=== PATIENT | female | born 1960 | race African-American/Black ===

== ENCOUNTER 2017-09-26 11:06 | Emergency (ER) | payer BC ==
[~2017-09-26] VITALS: Ht 165.1 cm; Wt 58.0 kg
[2017-09-26 13:29] VITALS: BP 101/63
== END 2017-09-26 14:58 | disposition home or self-care (01) ==
LOC: ER 13:25
DX: M54.2 Cervicalgia (principal); I11.9 Hypertensive heart disease without heart failure; E11.9 Type 2 diabetes mellitus without complications; V43.92XA Unspecified car occupant injured in collision with other type car in traffic accident, initial encounter; Y92.488 Other paved roadways as the place of occurrence of the external cause
CPT/HCPCS: 99283

== ENCOUNTER 2019-01-25 11:57 | Inpatient (IN) | payer BC ==
[~2019-01-25] VITALS: Ht 165.1 cm; Wt 61.2 kg
[2019-01-25] MEDS ORDERED: SODIUM CHLORIDE 0.9% 1,000 ML IV ONE (16:12)
[2019-01-25] MEDS ORDERED: ASPIRIN 81MG TABLET PO ONE (16:15)
[2019-01-25 16:54] LABS: CHLORIDE 100 mEq/L (98-107)
[2019-01-25 16:56] LABS: BASOPHILS % 0.7 % (0.0-2.0); EOSINOPHILS % 0.2 % (0.0-5.0); HEMATOCRIT. 42.9 % (36.0-48.0); HEMOGLOBIN. 14.3 g/dL (12.0-16.0); LYMPHOCYTES % 23.8 % (20.0-50.0); MEAN CORPUSCULAR HEMOGLOBIN 32.2 pg (28.0-32.0); MEAN CORPUSCULAR VOLUME 96.5 fL (81.0-99.0); MEAN PLATELET VOLUME 9.1 fl (7.4-10.4); MONOCYTES % 4.7 % (2.0-8.0); NEUTROPHILS % 70.6 % (40.0-76.0); PLATELET 253 x1000/uL (130-400); RED BLOOD CELL COUNT 4.45 mill/uL (4.2-5.4); RED CELL DISTRIBUTION WIDTH 14.1 % (11.6-14.6)
[2019-01-25 16:57] LABS: D-DIMER 0.78 mg/L FEU (<0.50); INR 1.2; PARTIAL THROMBOPLASTIN TIME 25.9 sec (23.4-31.0); PROTHROMBIN TIME 11.9 sec (9.6-11.0)
[2019-01-25] MEDS ORDERED: NITROGLYCERIN OINT 1GM/INCH UDPKT TD ONE (18:30)
[2019-01-25] MEDS ORDERED: FUROSEMIDE 40MG/4ML VIAL IV ONE (18:30)
[2019-01-25] MEDS ORDERED: IOHEXOL-350 100 ML BOTTLE ONE (18:57)
[2019-01-25] MEDS ORDERED: DEXTROSE 50% WATER 50ML SYRINGE IV PRN (19:00)
[2019-01-25 19:07] LABS: BG BASE EXCESS -2.1 mmol/L (-2.0-2.0); BG CARBOXYHEMOGLOBIN 0.8 % (0.5-1.5); BG DEOXYHEMOGLOBIN 8.4 % (0.0-5.0); BG FRACTION INSPIRED OXYGEN 21; BG HCO3 ACT 22.1 mmol/L (22.0-26.0); BG METHEMOGLOBIN 0.1 % (0.0-1.5); BG OXYGEN SATURATION 91.5 % (92.0-98.5); BG OXYHEMOGLOBIN 90.7 % (94.0-97.0); BG PCO2 36.3 mmHg (35.0-45.0); BG PH 7.403 (7.350-7.450); BG PO2 66.7 mmHg (75.0-100.0); BG SAMPLE SITE RIGHT RADIAL; BG TOTAL HEMOGLOBIN 14.4 g/dL (12.0-18.0); BG VENT MODE ROOM AIR
[2019-01-25] MEDS ORDERED: INSULIN LISPRO 100 UNITS/ML SUBCUT NR (23:25)
[2019-01-26] VITALS: BP 125/77
[2019-01-26] MEDS ORDERED: DEXTROSE 50% WATER 50ML SYRINGE IV PRN (00:45)
[2019-01-26] MEDS ORDERED: FURO-151 PO (00:51)
[2019-01-26] MEDS ORDERED: COR6 PO (00:51)
[2019-01-26] MEDS ORDERED: METF-816 PO (00:51)
[2019-01-26] MEDS ORDERED: ASPI-1393 PO (00:51)
[2019-01-26 04:00] VITALS: BP 93/63
[2019-01-26] MEDS: BLOOD SUGAR DIAGNOSTIC STRIP TEST SCH ×3 (06:51→18:02)
[2019-01-26 07:30] LABS: CREATINE KINASE MB FRACTION 2.9 ng/mL (0.5-3.6)
[2019-01-26] MEDS ORDERED: BLOOD SUGAR DIAGNOSTIC STRIP TEST SCH (07:40)
[2019-01-26 08:00] VITALS: BP 110/70
[2019-01-26] MEDS ORDERED: INSULIN LISPRO 100 UNITS/ML SUBCUT SCH (08:10)
[2019-01-26] MEDS: INSULIN LISPRO 100 UNITS/ML SUBCUT SCH ×3 (08:58→18:15)
[2019-01-26] MEDS ORDERED: CARVEDILOL 6.25 MG TABLET PO SCH (09:00)
[2019-01-26] MEDS ORDERED: LISINOPRIL 10MG TABLET PO SCH (09:00)
[2019-01-26] MEDS ORDERED: FUROSEMIDE 40MG/4ML VIAL IVP SCH ×2 (09:00→17:15)
[2019-01-26] MEDS ORDERED: ENOXAPARIN 40MG/0.4ML SYR SUBCUT SCH (09:00)
[2019-01-26] MEDS ORDERED: ASPIRIN 81MG TABLET PO SCH (09:00)
[2019-01-26] MEDS: METFORMIN HCL 500MG TABLET PO SCH ×2 (09:01→18:14)
[2019-01-26 12:00] VITALS: BP 100/67
[2019-01-26 15:13] LABS: CREATINE KINASE MB FRACTION 2.6 ng/mL (0.5-3.6)
[2019-01-26 16:00] VITALS: BP 110/68
[2019-01-26 17:42] VITALS: BP 110/68
== END 2019-01-26 18:47 | disposition short-term general hospital (02) | DRG 292 ==
LOC: ER 12:34 → 7WST 18:21 → ENRESERV 19:44 → CANRESERV 19:44 → CANBEDREQ 21:01 → ENRESERV 23:05
PROVIDERS: ADMIT Internal Medicine; ATTEND Internal Medicine
DX: I11.0 Hypertensive heart disease with heart failure (principal); R17 Unspecified jaundice; E11.65 Type 2 diabetes mellitus with hyperglycemia; I50.23 Acute on chronic systolic (congestive) heart failure; I42.9 Cardiomyopathy, unspecified; E78.5 Hyperlipidemia, unspecified; R06.03 Acute respiratory distress; I25.10 Atherosclerotic heart disease of native coronary artery without angina pectoris; I44.7 Left bundle-branch block, unspecified; Z91.19 Patient's noncompliance with other medical treatment and regimen; Z95.810 Presence of automatic (implantable) cardiac defibrillator; Z79.84 Long term (current) use of oral hypoglycemic drugs
CPT/HCPCS: 36415; 36600; 71045; 71275; 82375; 82550; 82553; 82805; 82962; 83036; 83880; 84443; 84484; 85379; 93005; 93306; 93970; 99285; J1650; J1815; J1940; J7030; Q9967

== ENCOUNTER 2022-03-01 11:01 | Inpatient (IN) | payer BC, OTHER ==
[~2022-03-01] VITALS: Ht 167.6 cm; Wt 64.0 kg
[~2022-03-01 11:01] MED LIST: ASPI-1497 PO; COR6 PO; FURO-151 PO; METF-874 PO
[2022-03-01 13:17] LABS: BASOPHILS % 0.8 % (0.0-2.0); EOSINOPHILS % 0.4 % (0.0-5.0); HEMATOCRIT. 41.2 % (36.0-48.0); HEMOGLOBIN. 13.7 g/dL (12.0-16.0); LYMPHOCYTES % 26.5 % (20.0-50.0); MEAN CORPUSCULAR VOLUME 93.2 fL (81.0-99.0); MEAN PLATELET VOLUME 8.7 fl (7.4-10.4); MONOCYTES % 7.9 % (2.0-8.0); NEUTROPHILS % 64.4 % (40.0-76.0); PLATELET 215 x1000/uL (130-400); RED BLOOD CELL COUNT 4.42 mill/uL (4.2-5.4); RED CELL DISTRIBUTION WIDTH 13.8 % (11.6-14.6)
[2022-03-01 13:26] LABS: CHLORIDE 98 mEq/L (98-107)
[2022-03-01 14:45] LABS: CLARITY URINE CLEAR (CLEAR); COLOR URINE YELLOW (YELLOW); KETONES URINE TRACE (NEGATIVE); LEUKOCYTE ESTERASE URINE NEGATIVE (NEGATIVE); NITRITE URINE NEGATIVE (NEGATIVE); OCCULT BLOOD URINE NEGATIVE (NEGATIVE); PROTEIN URINE 1+ (NEGATIVE); SPECIFIC GRAVITY URINE 1.022 (1.005-1.030)
[2022-03-01] MEDS ORDERED: ASPIRIN 325MG EC TABLET PO ONE (15:00)
[2022-03-01 15:02] LABS: *AMPHETAMINES SCREEN URINE NEGATIVE (NEGATIVE); *BARBITURATES SCREEN URINE NEGATIVE (NEGATIVE); *BENZODIAZEPINES SCREEN URINE NEGATIVE (NEGATIVE); *COCAINE SCREEN URINE NEGATIVE (NEGATIVE); CANNABINOID URINE SCREEN NEGATIVE (NEGATIVE); METHADONE URINE SCREEN NEGATIVE (NEGATIVE); OPIATES URINE SCREEN NEGATIVE (NEGATIVE); PHENCYCLIDINE URINE SCREEN NEGATIVE (NEGATIVE)
[2022-03-01 22:00] VITALS: BP 121/74
[2022-03-01] MEDS ORDERED: IOHEXOL-350 100 ML BOTTLE ONE (22:21)
[2022-03-01 22:30] VITALS: BP 121/74
[2022-03-02] VITALS: BP 133/80
[2022-03-02] MEDS ORDERED: DEXTROSE 50% WATER 50ML SYRINGE IV PRN (00:15)
[2022-03-02 04:00] VITALS: BP 110/58
[2022-03-02 05:59] LABS: BASOPHILS % 0.9 % (0.0-2.0); EOSINOPHILS % 1.3 % (0.0-5.0); HEMATOCRIT. 39.5 % (36.0-48.0); HEMOGLOBIN. 13.5 g/dL (12.0-16.0); LYMPHOCYTES % 36.1 % (20.0-50.0); MEAN CORPUSCULAR HEMOGLOBIN 31.7 pg (28.0-32.0); MEAN CORPUSCULAR VOLUME 92.4 fL (81.0-99.0); MEAN PLATELET VOLUME 9.3 fl (7.4-10.4); MONOCYTES % 8.1 % (2.0-8.0); NEUTROPHILS % 53.6 % (40.0-76.0); PLATELET 216 x1000/uL (130-400); RED BLOOD CELL COUNT 4.27 mill/uL (4.2-5.4); RED CELL DISTRIBUTION WIDTH 13.7 % (11.6-14.6)
[2022-03-02 06:39] LABS: CHLORIDE 101 mEq/L (98-107)
[2022-03-02 06:49] LABS: HDL CHOLESTEROL 71 mg/dL (40-59); LDL CHOLESTEROL 44 mg/dL (5-100)
[2022-03-02] MEDS: BLOOD SUGAR DIAGNOSTIC STRIP TEST SCH ×4 (07:10→20:53)
[2022-03-02 08:00] VITALS: BP 106/66
[2022-03-02] MEDS: INSULIN LISPRO 100 UNITS/ML SUBCUT SCH ×4 (08:19→21:40)
[2022-03-02] MEDS ORDERED: ASPIRIN 325MG EC TABLET PO SCH (09:00)
[2022-03-02] MEDS ORDERED: CARVEDILOL 6.25 MG TABLET PO SCH (09:00)
[2022-03-02] MEDS ORDERED: DOCUSATE SODIUM 100MG CAPSULE PO SCH (09:00)
[2022-03-02] MEDS: CARVEDILOL 6.25 MG TABLET PO SCH ×2 (09:13→17:07)
[2022-03-02] MEDS: HEPARIN 5000 UNITS/ML VIAL SUBCUT SCH ×2 (09:15→20:48)
[2022-03-02 12:00] VITALS: BP 104/60
[2022-03-02 15:59] VITALS: BP 111/65
[2022-03-02] MEDS ORDERED: ATORVASTATIN CALCIUM 40MG TABLET PO SCH (21:00)
== END 2022-03-02 23:03 | disposition short-term general hospital (02) | DRG 69 ==
LOC: ER 11:05 → 8WST 16:39 → ENRESERV 21:02
PROVIDERS: ADMIT Internal Medicine; ATTEND Internal Medicine
DX: G45.9 Transient cerebral ischemic attack, unspecified (principal); I21.4 Non-ST elevation (NSTEMI) myocardial infarction; E87.1 Hypo-osmolality and hyponatremia; Z20.822 Contact with and (suspected) exposure to COVID-19; I25.10 Atherosclerotic heart disease of native coronary artery without angina pectoris; I11.0 Hypertensive heart disease with heart failure; D72.819 Decreased white blood cell count, unspecified; I50.9 Heart failure, unspecified; Z95.0 Presence of cardiac pacemaker; Z79.899 Other long term (current) drug therapy; E11.65 Type 2 diabetes mellitus with hyperglycemia
CPT/HCPCS: 36415; 70496; 70498; 71045; 80048; 80053; 80061; 80305; 81003; 82962; 83036; 83880; 84484; 85025; 87426; 93005; 99291; C9803; J1644; J1815; Q9967

== ENCOUNTER 2022-08-09 08:46 | Inpatient (IN) | payer OTHER ==
[~2022-08-09] VITALS: Ht 160 cm; Wt 64.0 kg
[2022-08-09 09:58] LABS: HEMATOCRIT. 40.7 % (36.0-48.0); HEMOGLOBIN. 13.6 g/dL (12.0-16.0); MEAN CORPUSCULAR VOLUME 95.7 fL (81.0-99.0); MEAN PLATELET VOLUME 8.5 fl (7.4-10.4); PLATELET 200 x1000/uL (130-400); RED BLOOD CELL COUNT 4.25 mill/uL (4.2-5.4); RED CELL DISTRIBUTION WIDTH 14.1 % (11.6-14.6)
[2022-08-09 10:06] LABS: CHLORIDE 106 mEq/L (98-107)
[2022-08-09 10:09] LABS: INR 1.2; PROTHROMBIN TIME 12.3 sec (9.6-11.0)
[2022-08-09 10:23] LABS: PLATELET ESTIMATE NORMAL
[2022-08-09] MEDS ORDERED: ENOXAPARIN 60MG/0.6ML SYR SUBCUT ONE (10:30)
[2022-08-09 14:29] LABS: CLARITY URINE CLEAR (CLEAR); COLOR URINE DARK YELLOW (YELLOW); KETONES URINE NEGATIVE (NEGATIVE); LEUKOCYTE ESTERASE URINE TRACE (NEGATIVE); NITRITE URINE NEGATIVE (NEGATIVE); OCCULT BLOOD URINE NEGATIVE (NEGATIVE); PROTEIN URINE 1+ (NEGATIVE); SPECIFIC GRAVITY URINE 1.026 (1.005-1.030)
[2022-08-09 16:59] VITALS: BP 106/70
== END 2022-08-09 17:01 | disposition home or self-care (01) | DRG 177 ==
LOC: ER 08:46 → EDBEDREQSVC 11:25 → MICUSO 12:56 → EDBEDREQTM 12:59 → EDBEDREQ 12:59 → MICUSO 17:01
PROVIDERS: ADMIT Internal Medicine; ATTEND Internal Medicine
DX: U07.1 COVID-19 (principal); I21.4 Non-ST elevation (NSTEMI) myocardial infarction; E11.9 Type 2 diabetes mellitus without complications; I11.0 Hypertensive heart disease with heart failure; I25.10 Atherosclerotic heart disease of native coronary artery without angina pectoris; R19.7 Diarrhea, unspecified; I50.9 Heart failure, unspecified; Z86.73 Personal history of transient ischemic attack (TIA), and cerebral infarction without residual deficits; Z79.82 Long term (current) use of aspirin; Z79.899 Other long term (current) drug therapy
CPT/HCPCS: 36415; 71045; 80053; 81003; 82962; 83605; 84145; 84484; 85025; 85379; 87426; 87804; 93005; 99285; C9803; J1650

== ENCOUNTER 2022-08-14 12:43 | Emergency (ER) | payer OTHER ==
[~2022-08-14] VITALS: Ht 160 cm; Wt 50.0 kg
[2022-08-14 12:46] VITALS: BP 112/65
== END 2022-08-14 16:11 | disposition home or self-care (01) ==
LOC: ER 12:43
DX: Z20.822 Contact with and (suspected) exposure to COVID-19 (principal); Z98.890 Other specified postprocedural states; I11.0 Hypertensive heart disease with heart failure; I50.9 Heart failure, unspecified; E11.9 Type 2 diabetes mellitus without complications
CPT/HCPCS: 87426; 99283; C9803

== ENCOUNTER 2022-12-09 09:55 | Emergency (ER) | payer OTHER ==
[~2022-12-09] VITALS: Ht 165.1 cm; Wt 58.2 kg
[2022-12-09 10:49] LABS: BASOPHILS % 0.6 % (0.0-2.0); EOSINOPHILS % 0.2 % (0.0-5.0); HEMATOCRIT. 39.4 % (36.0-48.0); HEMOGLOBIN. 13.5 g/dL (12.0-16.0); MEAN CORPUSCULAR HEMOGLOBIN 32.2 pg (28.0-32.0); MEAN CORPUSCULAR VOLUME 94.3 fL (81.0-99.0); MEAN PLATELET VOLUME 8.7 fl (7.4-10.4); MONOCYTES % 8.8 % (2.0-8.0); NEUTROPHILS % 71.4 % (40.0-76.0); PLATELET 250 x1000/uL (130-400); RED BLOOD CELL COUNT 4.18 mill/uL (4.2-5.4); RED CELL DISTRIBUTION WIDTH 15.1 % (11.6-14.6)
[2022-12-09 11:01] LABS: CHLORIDE 100 mEq/L (98-107)
[2022-12-09 12:07] LABS: INR 1.2; PROTHROMBIN TIME 12.4 sec (9.6-11.0)
[2022-12-09 12:23] LABS: CLARITY URINE CLEAR (CLEAR); COLOR URINE DARK YELLOW (YELLOW); KETONES URINE TRACE (NEGATIVE); LEUKOCYTE ESTERASE URINE 2+ (NEGATIVE); NITRITE URINE NEGATIVE (NEGATIVE); OCCULT BLOOD URINE NEGATIVE (NEGATIVE); PH URINE 5.5 (4.5-8.0); PROTEIN URINE 1+ (NEGATIVE); SPECIFIC GRAVITY URINE 1.028 (1.005-1.030)
[2022-12-09] MEDS ORDERED: NITROGLYCERIN 0.4MG TABLET SL SL ONE (12:30)
[2022-12-09] MEDS ORDERED: ACETAMINOPHEN 325MG TABLET PO ONE (12:30)
[2022-12-09] MEDS ORDERED: FUROSEMIDE 40MG/4ML VIAL IVP ONE (12:30)
[2022-12-09 21:35] VITALS: BP 120/75
== END 2022-12-09 22:04 | disposition short-term general hospital (02) ==
LOC: ER 09:55 → EDBEDREQ 17:18 → ER 22:04
DX: I11.0 Hypertensive heart disease with heart failure (principal); I50.9 Heart failure, unspecified; R77.8 Other specified abnormalities of plasma proteins; E11.9 Type 2 diabetes mellitus without complications; Z98.890 Other specified postprocedural states; Z20.822 Contact with and (suspected) exposure to COVID-19
CPT/HCPCS: 36415; 71045; 80053; 81003; 82962; 83880; 84484; 85025; 85610; 87426; 93005; 96374; 99285; C9803; J1940; Z7610

== ENCOUNTER 2023-08-12 09:30 | Emergency (ER) | payer OTHER ==
[~2023-08-12] VITALS: Ht 162.6 cm; Wt 61.0 kg
[2023-08-12 10:02] VITALS: BP 117/66; PULSE 84; RESP 18; TEMP 98.9; O2SAT 98
[2023-08-12] MEDS ORDERED: FLUT9.9S BOTHNSTRLS (11:11)
[2023-08-12] MEDS ORDERED: TOPUD PO (11:12)
== END 2023-08-12 11:18 | disposition home or self-care (01) ==
LOC: ER 09:30
DX: H57.13 Ocular pain, bilateral (principal); J32.9 Chronic sinusitis, unspecified; I11.0 Hypertensive heart disease with heart failure; I50.9 Heart failure, unspecified; I25.10 Atherosclerotic heart disease of native coronary artery without angina pectoris; E11.9 Type 2 diabetes mellitus without complications; Z95.0 Presence of cardiac pacemaker
CPT/HCPCS: 99281

== ENCOUNTER 2023-08-31 13:00 | Inpatient (IN) | payer OTHER, MEDICAID ==
[~2023-08-31] VITALS: Ht 167.6 cm; Wt 63.5 kg
[~2023-08-31 13:00] MED LIST changes: -ASPI-1497 PO; -COR6 PO; +FLUT9.9S BOTHNSTRLS; -FURO-151 PO; -METF-874 PO; +TOPUD PO
[2023-08-31 15:30] LABS: HEMATOCRIT. 36.3 % (36.0-48.0); MEAN CORPUSCULAR HEMOGLOBIN 31.3 pg (28.0-32.0); MEAN CORPUSCULAR VOLUME 94.9 fL (81.0-99.0); MEAN PLATELET VOLUME 8.8 fl (7.4-10.4); PLATELET 239 x1000/uL (130-400); RED BLOOD CELL COUNT 3.82 mill/uL (4.2-5.4); RED CELL DISTRIBUTION WIDTH 17.8 % (11.6-14.6); WHITE BLOOD COUNT 3.9 x1000/uL (4.5-11.0)
[2023-08-31 15:32] LABS: DIFFERENTIAL COMMENT 1
[2023-08-31 15:53] LABS: ALANINE AMINOTRANSFERASE 28 IU/L (10-49); ASPARTATE AMINOTRANSFERASE 51 IU/L (<34); BILIRUBIN TOTAL 2.9 mg/dL (0.1-1.0); CARBON DIOXIDE 25 mEq/L (21-32); CHLORIDE 97 mEq/L (98-107); CREATININE 1.1 mg/dL (0.6-1.0); GLUCOSE 239 mg/dL (70-105); POTASSIUM 4.5 mEq/L (3.5-5.1); PROTEIN TOTAL 7.7 g/dL (6.0-8.3); SODIUM 132 mEq/L (136-145); UREA NITROGEN BLOOD 23 mg/dL (9-23)
[2023-08-31 16:17] LABS: TROPONIN I HIGH SENSITIVITY 67 ng/L (3.0-34)
[2023-08-31 17:06] LABS: PLATELET ESTIMATE NORMAL
[2023-08-31 18:33] LABS: CLARITY URINE CLOUDY (CLEAR); COLOR URINE DARK YELLOW (YELLOW); GLUCOSE URINE TRACE (NEGATIVE); KETONES URINE NEGATIVE (NEGATIVE); LEUKOCYTE ESTERASE URINE 1+ (NEGATIVE); NITRITE URINE NEGATIVE (NEGATIVE); OCCULT BLOOD URINE 1+ (NEGATIVE); PROTEIN URINE 2+ (NEGATIVE); SPECIFIC GRAVITY URINE 1.017 (1.005-1.030)
[2023-08-31 19:24] LABS: BACTERIA URINE 1+; SQUAMOUS EPITHELIAL CELL URINE 1+ /lpf (RARE/1+)
[2023-09-01] LABS: TROPONIN I HIGH SENSITIVITY 73 ng/L (3.0-34)
[2023-09-01] MEDS ORDERED: ASPIRIN 81MG TABLET PO NR (02:30)
[2023-09-01] MEDS ORDERED: FUROSEMIDE 40MG/4ML VIAL IV NR (02:30)
[2023-09-01 08:00] VITALS: BP 117/68; PULSE 79; RESP 18; TEMP 97.6
[2023-09-01 09:15] VITALS: BP 117/68; PULSE 79; RESP 20; TEMP 97.9
[2023-09-01 10:29] VITALS: BP 117/68; PULSE 79; RESP 18; TEMP 97.6
[2023-09-01 12:00] VITALS: BP 106/60; PULSE 76; RESP 20; TEMP 97.8
[2023-09-01] MEDS ORDERED: ONDANSETRON HCL 4MG/2ML INJ IV PRN (12:00)
[2023-09-01] MEDS ORDERED: IPRATROPIUM/ALBUTEROL 0.5-3(2.5)MG/3ML NEB HHN PRN (12:00)
[2023-09-01] MEDS ORDERED: ACETAMINOPHEN 325MG TABLET PO PRN ×2 (12:00)
[2023-09-01] MEDS ORDERED: DEXTROSE 50% WATER 50ML SYRINGE IV PRN (12:00)
[2023-09-01] MEDS ORDERED: DOCUSATE SODIUM 100MG CAPSULE PO PRN (12:00)
[2023-09-01] MEDS ORDERED: CLONIDINE 0.1MG TABLET PO PRN (12:00)
[2023-09-01] MEDS: BLOOD SUGAR DIAGNOSTIC STRIP TEST SCH ×3 (12:37→21:59)
[2023-09-01] MEDS: INSULIN LISPRO 100 UNITS/ML SUBCUT SCH ×3 (12:46→22:07)
[2023-09-01 13:13] LABS: HEMATOCRIT. 35.9 % (36.0-48.0); HEMOGLOBIN. 11.5 g/dL (12.0-16.0); MEAN CORPUSCULAR HEMOGLOBIN 30.5 pg (28.0-32.0); MEAN CORPUSCULAR VOLUME 95.2 fL (81.0-99.0); MEAN PLATELET VOLUME 8.5 fl (7.4-10.4); PLATELET 266 x1000/uL (130-400); RED BLOOD CELL COUNT 3.77 mill/uL (4.2-5.4); RED CELL DISTRIBUTION WIDTH 17.8 % (11.6-14.6)
[2023-09-01 13:26] LABS: DIFFERENTIAL COMMENT 1; INR 1.3
[2023-09-01 13:34] LABS: ALANINE AMINOTRANSFERASE 25 IU/L (10-49); ALBUMIN 3.6 g/dL (3.2-4.8); ASPARTATE AMINOTRANSFERASE 41 IU/L (<34); BILIRUBIN DIRECT 1.6 mg/dL (<=3.0); BILIRUBIN TOTAL 2.7 mg/dL (0.1-1.0); CALCIUM 8.8 mg/dL (8.7-10.4); CARBON DIOXIDE 24 mEq/L (21-32); CHLORIDE 100 mEq/L (98-107); CHOLESTEROL 114 mg/dL (<200); CREATININE 1.1 mg/dL (0.6-1.0); GLUCOSE 217 mg/dL (70-105); HDL CHOLESTEROL 32 mg/dL (>65); LDL CHOLESTEROL 49 mg/dL (5-100); POTASSIUM 4.5 mEq/L (3.5-5.1); PROTEIN TOTAL 7.8 g/dL (6.0-8.3); SODIUM 135 mEq/L (136-145); T4 FREE 1.07 ng/dL (0.89-1.76); THYROID STIMULATING HORMONE 7.55 uIU/mL (0.55-4.78); TRIGLYCERIDE 97 mg/dL (0-150); UREA NITROGEN BLOOD 28 mg/dL (9-23)
[2023-09-01] MEDS: CEFTRIAXONE 1GM PREMIX 50 ML IV SCH (13:46)
[2023-09-01] MEDS ORDERED: FUROSEMIDE 20MG TABLET PO SCH (14:00)
[2023-09-01 15:11] LABS: PLATELET ESTIMATE NORMAL
[2023-09-01 15:13] LABS: ANISOCYTOSIS 1+
[2023-09-01 16:00] VITALS: BP 122/65; PULSE 82; RESP 20; TEMP 98
[2023-09-01 16:44] LABS: CREATINE KINASE MB FRACTION 1.1 ng/mL (0.5-3.6)
[2023-09-01] MEDS ORDERED: NON FORMULARY PATIENT HOME MED PO SCH (17:00)
[2023-09-01] MEDS: SPIRONOLACTONE 12.5MG TABLET PO SCH (17:33)
[2023-09-01] MEDS: SACUBITRIL/VALSARTAN 49MG/51MG TABLET PO SCH (17:33)
[2023-09-01] MEDS ORDERED: CEFTRIAXONE 1GM PREMIX 50 ML IV SCH (18:00)
[2023-09-01 20:00] VITALS: BP 134/83; PULSE 79; RESP 19; TEMP 97.5
[2023-09-01] MEDS: CARVEDILOL 3.125 MG TABLET PO SCH (21:00)
[2023-09-02] VITALS: BP 129/66; PULSE 77; RESP 21; TEMP 98.2
[2023-09-02 00:24] LABS: CREATINE KINASE MB FRACTION 1.6 ng/mL (0.5-3.6)
[2023-09-02 04:00] VITALS: BP 110/57; PULSE 69; RESP 18; TEMP 98
[2023-09-02 06:53] LABS: HEMATOCRIT. 34.4 % (36.0-48.0); HEMOGLOBIN. 11.5 g/dL (12.0-16.0); MEAN CORPUSCULAR HEMOGLOBIN 30.9 pg (28.0-32.0); MEAN CORPUSCULAR HGB CONC 33.3 g/dL (31.0-37.0); MEAN CORPUSCULAR VOLUME 92.9 fL (81.0-99.0); MEAN PLATELET VOLUME 8.1 fl (7.4-10.4); PLATELET 280 x1000/uL (130-400); RED BLOOD CELL COUNT 3.71 mill/uL (4.2-5.4); RED CELL DISTRIBUTION WIDTH 17.7 % (11.6-14.6)
[2023-09-02 07:16] LABS: CALCIUM 8.5 mg/dL (8.7-10.4); CARBON DIOXIDE 25 mEq/L (21-32); CHLORIDE 100 mEq/L (98-107); CREATININE 0.9 mg/dL (0.6-1.0); DIFFERENTIAL COMMENT 1; GLUCOSE 52 mg/dL (70-105); POTASSIUM 3.7 mEq/L (3.5-5.1); SODIUM 137 mEq/L (136-145); UREA NITROGEN BLOOD 25 mg/dL (9-23)
[2023-09-02] MEDS ORDERED: LEVOTHYROXINE SODIUM 25MCG TABLET PO SCH (07:40)
[2023-09-02] MEDS: BLOOD SUGAR DIAGNOSTIC STRIP TEST SCH ×3 (07:40→17:40)
[2023-09-02 08:00] VITALS: BP 110/54; PULSE 71; RESP 20; TEMP 97.4
[2023-09-02] MEDS: INSULIN LISPRO 100 UNITS/ML SUBCUT SCH ×3 (08:10→18:10)
[2023-09-02] MEDS: SACUBITRIL/VALSARTAN 49MG/51MG TABLET PO SCH ×2 (08:39→18:26)
[2023-09-02] MEDS: CARVEDILOL 3.125 MG TABLET PO SCH (08:40)
[2023-09-02] MEDS: FUROSEMIDE 20MG TABLET PO SCH ×2 (08:41→18:26)
[2023-09-02] MEDS: SPIRONOLACTONE 12.5MG TABLET PO SCH (08:41)
[2023-09-02] MEDS ORDERED: ASPIRIN 81MG EC TABLET PO SCH (09:00)
[2023-09-02] MEDS ORDERED: LACTULOSE 20G/30ML UDC PO SCH (09:00)
[2023-09-02] MEDS: DOCUSATE SODIUM 100MG CAPSULE PO SCH ×2 (10:12→18:26)
[2023-09-02 12:00] VITALS: BP 111/52; PULSE 69; RESP 20; TEMP 97.8
[2023-09-02] MEDS: CEFTRIAXONE 1GM PREMIX 50 ML IV SCH (14:06)
[2023-09-02 16:00] VITALS: BP 101/64; PULSE 70; RESP 20; TEMP 98
[2023-09-02] MEDS ORDERED: COR3 MT (16:16)
[2023-09-02] MEDS ORDERED: SACU1TAB7 MT (16:16)
[2023-09-02] MEDS ORDERED: LEVO25TA2 MT (16:16)
[2023-09-02] MEDS ORDERED: CIPR-263 MT (16:16)
[2023-09-02] MEDS ORDERED: FURO-151 MT (16:16)
[2023-09-02] MEDS ORDERED: SPIR25TA6 MT (16:16)
[2023-09-02] MEDS ORDERED: ASPI-1497 MT (16:16)
[2023-09-02 17:23] LABS: *AMPHETAMINES SCREEN URINE NEGATIVE (NEGATIVE); *BARBITURATES SCREEN URINE NEGATIVE (NEGATIVE); *BENZODIAZEPINES SCREEN URINE NEGATIVE (NEGATIVE); *COCAINE SCREEN URINE NEGATIVE (NEGATIVE); CANNABINOID URINE SCREEN NEGATIVE (NEGATIVE); ECSTASY MDMA SCREEN URINE NEGATIVE (NEGATIVE); METHADONE URINE SCREEN Neg (NEGATIVE); OPIATES URINE SCREEN NEGATIVE (NEGATIVE); PHENCYCLIDINE URINE SCREEN NEGATIVE (NEGATIVE)
[2023-09-02 17:32] LABS: PLATELET ESTIMATE NORMAL
[2023-09-02 17:46] VITALS: BP 125/69; PULSE 79; TEMP 97.6; O2SAT 98
== END 2023-09-02 18:30 | disposition home or self-care (01) | DRG 281 ==
LOC: ER 15:04 → 7WST 09-01 05:25 → EDBEDREQTM 09-01 05:30 → EDBEDREQ 09-01 05:30
PROVIDERS: ADMIT Internal Medicine; ATTEND Internal Medicine
DX: I21.4 Non-ST elevation (NSTEMI) myocardial infarction (principal); E87.1 Hypo-osmolality and hyponatremia; N39.0 Urinary tract infection, site not specified; I42.0 Dilated cardiomyopathy; I11.0 Hypertensive heart disease with heart failure; D64.9 Anemia, unspecified; D72.819 Decreased white blood cell count, unspecified; E03.9 Hypothyroidism, unspecified; E11.9 Type 2 diabetes mellitus without complications; E78.5 Hyperlipidemia, unspecified; E87.8 Other disorders of electrolyte and fluid balance, not elsewhere classified; I50.9 Heart failure, unspecified; R74.01 Elevation of levels of liver transaminase levels; R06.03 Acute respiratory distress; E80.6 Other disorders of bilirubin metabolism; Z79.82 Long term (current) use of aspirin; F17.200 Nicotine dependence, unspecified, uncomplicated; Z79.899 Other long term (current) drug therapy; Z95.810 Presence of automatic (implantable) cardiac defibrillator
CPT/HCPCS: 36415; 71045; 80048; 80053; 80061; 80076; 80305; 81003; 82550; 82553; 82962; 83036; 83880; 84439; 84443; 84480; 84484; 85025; 93005; 93306; 93923; 99285; J0696; J1815; J1940

== ENCOUNTER 2023-09-20 10:21 | Inpatient (IN) | payer OTHER, MEDICAID ==
[~2023-09-20] VITALS: Ht 167.6 cm; Wt 63.5 kg
[~2023-09-20 10:21] MED LIST changes: +ASPI-1497 MT; +CIPR-263 MT; +COR3 MT; +FURO-151 MT; +LEVO25TA2 MT; +SACU1TAB7 MT; +SPIR25TA6 MT
[2023-09-20 11:34] LABS: BASOPHILS % 0.9 % (0.0-2.0); EOSINOPHILS % 0.2 % (0.0-5.0); HEMATOCRIT. 34.8 % (36.0-48.0); HEMOGLOBIN. 11.5 g/dL (12.0-16.0); MEAN CORPUSCULAR HEMOGLOBIN 31.4 pg (28.0-32.0); MEAN CORPUSCULAR HGB CONC 33.1 g/dL (31.0-37.0); MEAN CORPUSCULAR VOLUME 94.8 fL (81.0-99.0); MEAN PLATELET VOLUME 8.8 fl (7.4-10.4); MONOCYTES % 12.3 % (2.0-8.0); NEUTROPHILS % 70.6 % (40.0-76.0); PLATELET 276 x1000/uL (130-400); RED BLOOD CELL COUNT 3.67 mill/uL (4.2-5.4); RED CELL DISTRIBUTION WIDTH 17.3 % (11.6-14.6); WHITE BLOOD COUNT 3.6 x1000/uL (4.5-11.0)
[2023-09-20 11:54] LABS: ALANINE AMINOTRANSFERASE 28 IU/L (10-49); ALBUMIN 4.1 g/dL (3.2-4.8); ASPARTATE AMINOTRANSFERASE 47 IU/L (<34); BILIRUBIN TOTAL 3.2 mg/dL (0.1-1.0); CARBON DIOXIDE 26 mEq/L (21-32); CHLORIDE 97 mEq/L (98-107); GLUCOSE 231 mg/dL (70-105); POTASSIUM 4.7 mEq/L (3.5-5.1); PROTEIN TOTAL 8.4 g/dL (6.0-8.3); SODIUM 133 mEq/L (136-145); UREA NITROGEN BLOOD 33 mg/dL (9-23)
[2023-09-20 12:05] LABS: CREATININE 1.4 mg/dL (0.6-1.0)
[2023-09-20 13:45] LABS: CLARITY URINE CLOUDY (CLEAR); COLOR URINE DARK YELLOW (YELLOW); GLUCOSE URINE 3+ (NEGATIVE); KETONES URINE NEGATIVE (NEGATIVE); LEUKOCYTE ESTERASE URINE TRACE (NEGATIVE); NITRITE URINE NEGATIVE (NEGATIVE); OCCULT BLOOD URINE NEGATIVE (NEGATIVE); PROTEIN URINE 1+ (NEGATIVE)
[2023-09-20] MEDS ORDERED: CEFTRIAXONE SODIUM 1G VIAL IV ONE (14:15)
[2023-09-20 14:18] LABS: BACTERIA URINE 1+; RBC URINE 0-2 /hpf (0-2); SQUAMOUS EPITHELIAL CELL URINE 3+ /lpf (RARE/1+)
[2023-09-20] MEDS: CEFTRIAXONE 1GM PREMIX 50ML IV NR (15:28)
[2023-09-20] MEDS ORDERED: DEXTROSE 50% WATER 50ML SYRINGE IV PRN (22:30)
[2023-09-20 22:38] VITALS: BP 98/65; PULSE 89; RESP 18; TEMP 98.6
[2023-09-20] MEDS ORDERED: NALOXONE HCL 0.4MG/ML VIAL IV PRN (22:45)
[2023-09-21] VITALS: BP 109/73; PULSE 94; RESP 20; TEMP 97.9
[2023-09-21] MEDS: NA PHOS,M-B/NA PHOS,DI-BA ENEMA 118ML PR NR (00:48)
[2023-09-21] MEDS: DEXT 5%/0.9% NACL 1,000 ML IV SCH (00:48)
[2023-09-21] MEDS: PIPERACILLIN/TAZO 3.375G/50ML 50 ML IV SCH (00:48)
[2023-09-21] MEDS: FUROSEMIDE 40MG/4ML VIAL IVP NR (00:48)
[2023-09-21] MEDS: BLOOD SUGAR DIAGNOSTIC STRIP TEST SCH (05:52)
[2023-09-21] MEDS: INSULIN LISPRO 100 UNITS/ML SUBCUT SCH (06:25)
[2023-09-21 08:00] VITALS: BP 104/66; PULSE 87; RESP 20; TEMP 97.2
[2023-09-21] MEDS: PANTOPRAZOLE SODIUM 40 MG/VIAL IV SCH (09:42)
[2023-09-21] MEDS: MORPHINE SULFATE 2 MG/ML CPJ (NOT FOR IM USE) IV PRN (09:44)
[2023-09-21 11:19] LABS: ALANINE AMINOTRANSFERASE 31 IU/L (10-49); ASPARTATE AMINOTRANSFERASE 51 IU/L (<34); BILIRUBIN TOTAL 3.3 mg/dL (0.1-1.0); CALCIUM 9.1 mg/dL (8.7-10.4); CARBON DIOXIDE 25 mEq/L (21-32); CHLORIDE 99 mEq/L (98-107); CREATININE 1.4 mg/dL (0.6-1.0); GLUCOSE 166 mg/dL (70-105); POTASSIUM 4.8 mEq/L (3.5-5.1); PROTEIN TOTAL 8.1 g/dL (6.0-8.3); SODIUM 133 mEq/L (136-145); UREA NITROGEN BLOOD 37 mg/dL (9-23)
[2023-09-21 12:00] VITALS: BP 120/74; PULSE 70; RESP 19; TEMP 98.2
[2023-09-21 16:00] VITALS: BP 123/72; PULSE 69; RESP 19; TEMP 98.2
[2023-09-21 20:00] VITALS: BP 104/61; PULSE 83; RESP 19; TEMP 97.5
[2023-09-22] VITALS: BP 111/80; PULSE 90; RESP 16; TEMP 97.8
[2023-09-22 04:00] VITALS: BP 106/71; PULSE 91; RESP 16; TEMP 97.5
[2023-09-22 08:00] VITALS: BP 104/69; PULSE 93; RESP 19; TEMP 97.7
[2023-09-22 12:00] VITALS: BP 125/68; PULSE 84; RESP 18; TEMP 97.5
[2023-09-22 16:00] VITALS: BP 115/71; PULSE 63; RESP 19; TEMP 97.9
[2023-09-22 16:36] LABS: BASOPHILS % 0.9 % (0.0-2.0); DIFFERENTIAL COMMENT 0; EOSINOPHILS % 0.5 % (0.0-5.0); HEMATOCRIT. 35.1 % (36.0-48.0); HEMOGLOBIN. 11.4 g/dL (12.0-16.0); LYMPHOCYTES % 18.6 % (20.0-50.0); MEAN CORPUSCULAR HEMOGLOBIN 30.7 pg (28.0-32.0); MEAN CORPUSCULAR HGB CONC 32.6 g/dL (31.0-37.0); MEAN CORPUSCULAR VOLUME 94.1 fL (81.0-99.0); PLATELET 275 x1000/uL (130-400); RED BLOOD CELL COUNT 3.73 mill/uL (4.2-5.4); RED CELL DISTRIBUTION WIDTH 17.2 % (11.6-14.6); WHITE BLOOD COUNT 3.4 x1000/uL (4.5-11.0)
[2023-09-22 16:55] LABS: ALANINE AMINOTRANSFERASE 34 IU/L (10-49); ALBUMIN 3.9 g/dL (3.2-4.8); ASPARTATE AMINOTRANSFERASE 57 IU/L (<34); BILIRUBIN TOTAL 4.2 mg/dL (0.1-1.0); CALCIUM 8.9 mg/dL (8.7-10.4); CARBON DIOXIDE 23 mEq/L (21-32); CHLORIDE 98 mEq/L (98-107); GLUCOSE 193 mg/dL (70-105); POTASSIUM 4.6 mEq/L (3.5-5.1); PROTEIN TOTAL 8.1 g/dL (6.0-8.3); SODIUM 135 mEq/L (136-145); UREA NITROGEN BLOOD 44 mg/dL (9-23)
[2023-09-22 17:55] VITALS: BP 115/71; PULSE 91; TEMP 97.9; O2SAT 96
== END 2023-09-22 19:25 | disposition short-term general hospital (02) | DRG 444 ==
LOC: ER 10:21 → 5WST 16:30 → EDBEDREQ 16:32 → 7EST 22:26
PROVIDERS: ADMIT Internal Medicine; ATTEND Internal Medicine
DX: K80.01 Calculus of gallbladder with acute cholecystitis with obstruction (principal); I50.23 Acute on chronic systolic (congestive) heart failure; I13.0 Hypertensive heart and chronic kidney disease with heart failure and stage 1 through stage 4 chronic kidney disease, or unspecified chronic kidney disease; I42.8 Other cardiomyopathies; N39.0 Urinary tract infection, site not specified; R18.8 Other ascites; Z20.822 Contact with and (suspected) exposure to COVID-19; N18.9 Chronic kidney disease, unspecified; E11.22 Type 2 diabetes mellitus with diabetic chronic kidney disease; E78.5 Hyperlipidemia, unspecified; I25.10 Atherosclerotic heart disease of native coronary artery without angina pectoris; Z95.0 Presence of cardiac pacemaker
CPT/HCPCS: 36415; 74176; 76705; 78227; 80053; 81003; 82962; 83036; 83880; 85025; 87426; 99285; A9537; C9113; J0696; J1815; J1940; J2270; J2543; J7042